=== PATIENT | male | born 1960 | race Caucasian/White ===

== ENCOUNTER 2021-12-17 17:59 | Inpatient (IN) | payer OTHER ==
[~2021-12-17] VITALS: Ht 193 cm; Wt 87.5 kg
[2021-12-17] MEDS ORDERED: PANTOPRAZOLE 40MG VIAL IV ONE (20:40)
[2021-12-17] MEDS ORDERED: KETOROLAC 30 MG/ML 1ML VIAL IV ONE (20:40)
[2021-12-17] MEDS ORDERED: ONDANSETRON 4MG/2ML VIAL IV ONE (20:40)
[2021-12-17] MEDS ORDERED: NS 1,000 ML IV ONE (20:40)
[2021-12-17 21:11] LABS: BASO % 0.3 % (0.0-1.0); HEMATOCRIT 45.8 % (42.0-52.0); HEMOGLOBIN 15.8 g/dl (13.5-17.5); LYMPH # 0.8 10^3/uL (1.5-5.0); LYMPH % 6.1 % (24.0-44.0); MEAN CORPUSCULAR HEMOGLOBIN 30.9 pg (27.0-33.0); MEAN CORPUSCULAR HGB CONC 34.5 g/dl (32.0-36.5); MEAN CORPUSCULAR VOLUME 89.5 fl (80.0-96.0); MONO # 0.4 10^3/uL (0.0-0.8); MONO % 3.2 % (2.0-8.0); NEUTROPHILS # 12.2 10^3/uL (1.5-8.5); PLATELET COUNT, AUTOMATED 343 10^3/uL (150-450); RED BLOOD COUNT 5.12 10^6/uL (4.30-6.10); WHITE BLOOD COUNT 13.6 10^3/uL (4.0-10.0)
[2021-12-17 21:34] LABS: ALT/SGPT 21 U/L (12-78); BILIRUBIN,DIRECT 0.2 MG/DL (0.0-0.2); BILIRUBIN,TOTAL 1.1 MG/DL (0.2-1.0); BLOOD UREA NITROGEN 17 MG/DL (7-18); CALCIUM LEVEL 9.6 MG/DL (8.8-10.2); CARBON DIOXIDE LEVEL 31 MEQ/L (21-32); CHLORIDE LEVEL 101 MEQ/L (98-107); CREATININE FOR GFR 0.84 MG/DL (0.70-1.30); GLOMERULAR FILTRATION RATE > 60.0 (>49); GLUCOSE, FASTING 121 MG/DL (70-100); LIPASE 48 U/L (73-393); SODIUM LEVEL 140 MEQ/L (136-145); TOTAL PROTEIN 7.7 GM/DL (6.4-8.2)
[2021-12-17] MEDS ORDERED: ISOVUE-370 76% 100ML VIAL As Ordered ONE (21:39)
[2021-12-17] MEDS ORDERED: HOME MED LIST COMPLETE! XX SCH (23:00)
[2021-12-17] MEDS ORDERED: METOCLOPRAMIDE INJ 10MG/2ML VIAL (J2765 PER 1) IV PRN (23:40)
[2021-12-17] MEDS ORDERED: MORPHINE 2 MG/ML 1ML VIAL IV PRN (23:40)
[2021-12-17] MEDS ORDERED: KETOROLAC 30 MG/ML 1ML VIAL IV PRN (23:40)
[2021-12-17] MEDS ORDERED: ONDANSETRON 4MG/2ML VIAL IV PRN (23:40)
[2021-12-18 00:56] LABS: RSV AMPLIFICATION NEGATIVE (NEGATIVE)
[2021-12-18 02:15] VITALS: BP 157/90
[2021-12-18] MEDS: LR 1,000 ML IV SCH ×3 (03:17→22:07)
[2021-12-18 05:35] VITALS: BP_SYST 148; BP_SYST 154; BP_DIAS 68; BP_DIAS 85
[2021-12-18 07:25] LABS: BASO # 0.1 10^3/uL (0.0-0.2); BASO % 0.5 % (0.0-1.0); EOS # 0.2 10^3/uL (0.0-0.5); EOS % 1.5 % (0.0-3.0); LYMPH # 2.3 10^3/uL (1.5-5.0); LYMPH % 17.6 % (24.0-44.0); MEAN CORPUSCULAR HEMOGLOBIN 30.7 pg (27.0-33.0); MEAN CORPUSCULAR HGB CONC 33.7 g/dl (32.0-36.5); MEAN CORPUSCULAR VOLUME 91.3 fl (80.0-96.0); MONO # 1.2 10^3/uL (0.0-0.8); MONO % 8.8 % (2.0-8.0); NEUTROPHILS # 9.4 10^3/uL (1.5-8.5); NEUTROPHILS % 71.3 % (36.0-66.0); PLATELET COUNT, AUTOMATED 299 10^3/uL (150-450); RED BLOOD COUNT 4.49 10^6/uL (4.30-6.10); WHITE BLOOD COUNT 13.2 10^3/uL (4.0-10.0)
[2021-12-18 07:28] LABS: HEMOGLOBIN 13.8 g/dl (13.5-17.5)
[2021-12-18 07:47] LABS: BLOOD UREA NITROGEN 21 MG/DL (7-18); CARBON DIOXIDE LEVEL 31 MEQ/L (21-32); CHLORIDE LEVEL 110 MEQ/L (98-107); CREATININE FOR GFR 0.88 MG/DL (0.70-1.30); GLOMERULAR FILTRATION RATE > 60.0 (>49); GLUCOSE, FASTING 95 MG/DL (70-100); POTASSIUM SERUM 3.9 MEQ/L (3.5-5.1); SODIUM LEVEL 145 MEQ/L (136-145)
[2021-12-18] MEDS: PANTOPRAZOLE 40MG VIAL IV SCH (10:21)
[2021-12-18 11:24] LABS: APPEARANCE, URINE CLEAR (CLEAR); BACTERIA, URINE AUTO 1+ (NEGATIVE); BILIRUBIN, URINE AUTO NEGATIVE (NEGATIVE); BLOOD, URINE BLOOD NEGATIVE (NEGATIVE); COLOR, URINE AMBER (YELLOW); GLUCOSE, URINE (UA) AUTO NEGATIVE (NEGATIVE); KETONE, URINE AUTO 1+ mg/dL (NEGATIVE); LEUKOCYTE ESTERASE, URINE AUTO NEGATIVE (NEGATIVE); MUCUS, URINE MODERATE (NEGATIVE); NITRITE, URINE AUTO NEGATIVE (NEGATIVE); PROTEIN, URINE AUTO 1+ mg/dL (NEGATIVE); RBC, URINE AUTO 1 /HPF (0-3); SPECIFIC GRAVITY URINE AUTO 1.025 (1.002-1.035); SQUAMOUS EPITHELIAL CELL UR AU 0 /HPF (0-6); UROBILINOGEN, URINE AUTO 0.2 mg/dL (0.0-2.0); WBC, URINE AUTO 1 /HPF (0-3)
[2021-12-18 14:00] VITALS: BP 142/88
[2021-12-18] MEDS ORDERED: GASTROGRAFIN SOLUTION 30ML (Q9963) PO ONE (14:30)
[2021-12-18 18:00] VITALS: BP 130/79
[2021-12-18 22:00] VITALS: BP 152/82
[2021-12-19 02:00] VITALS: BP 139/69
[2021-12-19 05:30] VITALS: BP 159/88
[2021-12-19] MEDS ORDERED: ACETAMINOPHEN TAB 650MG DOSE (2X325MG) PO PRN (08:45)
[2021-12-19] MEDS: PANTOPRAZOLE 40MG VIAL IV SCH (08:55)
[2021-12-19 09:57] VITALS: BP 160/89
== END 2021-12-19 12:33 | disposition home or self-care (01) | DRG 247 ==
LOC: M ED 17:59 → M ED INP 23:38 → M MSPAV 12-18 02:30
PROVIDERS: ADMIT Surgery; ATTEND Surgery
DX: K56.50 Intestinal adhesions [bands], unspecified as to partial versus complete obstruction (principal); F17.210 Nicotine dependence, cigarettes, uncomplicated

== ENCOUNTER 2023-09-06 09:58 | Day surgery (SDC) | payer MEDICARE, OTHER ==
[~2023-09-06] VITALS: Ht 193 cm; Wt 90.3 kg
[~2023-09-06 09:58] MED LIST: LIDOCAINE 3.5 % 1ML OPHTH TOPICAL GEL OU ONE; MIDAZOLAM INJ 2MG/2ML VIAL As Ordered ONE; fentaNYL 100 MCG/2 ML INJECTION As Ordered ONE
[2023-09-06] MEDS ORDERED: mitoMYcin 0.2 MG/VIAL KIT FOR OPHTHALMIC USE As Ordered ONE (11:33)
[2023-09-06] MEDS ORDERED: POVIDONE-IODINE 5% OPHTH PREP SOL 30ML As Ordered ONE (11:34)
[2023-09-06] MEDS ORDERED: TOBRADEX OPHTH OINT 3.5 GM As Ordered ONE (11:34)
[2023-09-06] MEDS ORDERED: LIDOCAINE 2% W/EPINEPHRINE 20ML VIAL **PRES FREE As Ordered ONE (11:35)
[2023-09-06 13:02] VITALS: BP 150/80; TEMP 98.6; O2SAT 96
== END 2023-09-06 13:26 | disposition home or self-care (01) ==
LOC: M SDC 09:58
PROVIDERS: ATTEND Ophthalmology
DX: H11.001 Unspecified pterygium of right eye (principal); F17.210 Nicotine dependence, cigarettes, uncomplicated; Z91.018 Allergy to other foods
CPT/HCPCS: 65426; 88304; C1762; J2250; J3010; J7315

== ENCOUNTER 2023-11-08 08:22 | Day surgery (SDC) | payer OTHER ==
[~2023-11-08] VITALS: Ht 193 cm; Wt 91.0 kg
[2023-11-08] MEDS: TROPICAMIDE 1% OPHTH SOLN 15ML OD SCH (09:24)
[2023-11-08] MEDS: OFLOXACIN 0.3 % (OCUFLOX) OPTH SOL 5ML OD ONE (09:24)
[2023-11-08] MEDS: LIDOCAINE 3.5 % 1ML OPHTH TOPICAL GEL OU ONE (09:24)
[2023-11-08] MEDS: CYCLOPENTOLATE 1% OPHTH SOLN 2ML BTL OD SCH (09:24)
[2023-11-08] MEDS: PHENYLEPHRINE 2.5% OPHTH SOL 2ML OD SCH (09:24)
[2023-11-08] MEDS: PHENYLEPHRINE 10% OPHTH SOL 5ML OD PRN (09:40)
[2023-11-08] MEDS: CEFUROXIME 1MG/0.1ML INTRACAMERAL INJ As Ordered ONE (09:50)
[2023-11-08] MEDS: LIDOCAINE 1% SDV 5ML VIAL As Ordered ONE (09:50)
[2023-11-08] MEDS: BSS IRRIG/VANCO(10MG)/TOBRA(5MG)/EPINEPH(1:1000-0.5CC)500ML BAG-ORONLY As Ordered ONE (09:51)
[2023-11-08] MEDS ORDERED: fentaNYL 100 MCG/2 ML INJECTION As Ordered ONE (10:15)
[2023-11-08] MEDS ORDERED: MIDAZOLAM INJ 2MG/2ML VIAL As Ordered ONE (10:15)
[2023-11-08 10:18] VITALS: BP 165/94; TEMP 98.2; O2SAT 95
== END 2023-11-08 10:30 | disposition home or self-care (01) ==
LOC: M SDC 08:22
PROVIDERS: ATTEND Ophthalmology
DX: H25.11 Age-related nuclear cataract, right eye (principal); F17.210 Nicotine dependence, cigarettes, uncomplicated; Z91.018 Allergy to other foods
CPT/HCPCS: 66984; J0697; J2250; J3010; V2632

== ENCOUNTER 2025-04-21 13:05 | Emergency (ER) | payer MEDICARE, OTHER, SELFPAY ==
[~2025-04-21] VITALS: Ht 193 cm; Wt 88.6 kg
[2025-04-21] MEDS ORDERED: ELIQ5TAB (13:15)
[2025-04-21] MEDS: LIDOCAINE 2% MDV 20 ML VIAL SC ONE (15:39)
[2025-04-21] MEDS: TETANUS/DIPHTH/ACEL. PERTUSSIS 0.5 ML SYR IM.IMMUN ONE (15:41)
[2025-04-21] MEDS: ceFAZolin SOD 2 GM in DEXTROSE 5% (D5W) ADV/MINI-BAG 50 ML IV ONE (17:36)
[2025-04-21] MEDS ORDERED: CEPH500C PO (18:28)
[2025-04-21 18:41] VITALS: BP 125/62; TEMP 97.9; O2SAT 99
== END 2025-04-21 18:42 | disposition home or self-care (01) ==
LOC: M ED 13:05
DX: S91.142A Puncture wound with foreign body of left great toe without damage to nail, initial encounter (principal); S92.492A Other fracture of left great toe, initial encounter for closed fracture; I48.91 Unspecified atrial fibrillation; I25.2 Old myocardial infarction; Z23 Encounter for immunization; Z91.018 Allergy to other foods; Z79.2 Long term (current) use of antibiotics; Z79.01 Long term (current) use of anticoagulants
CPT/HCPCS: 73630; 73660; 90471; 90715; 96365; 96372; 99284; J0690